=== PATIENT | female | born 1950 | race Caucasian/White ===

== ENCOUNTER → 2019-01-01 | Outpatient (CLI) | payer MEDICARE ==
[2019-01-05 14:07] LABS: CHLAMYDIA TRACHOMATIS, NAA Negative (Negative); HPV 16 Negative (Negative); HPV 18 Negative (Negative); HPV OTHER HR TYPES Negative (Negative); NEISSERIA GONORRHOEAE, NAA Negative (Negative)
== END | disposition home or self-care (01) ==
LOC: LAB SHORT 11:28 → LAB 11:28
PROVIDERS: Student in an Organized Health Care Education/Training Program
DX: Z12.4 Encounter for screening for malignant neoplasm of cervix (principal); Z11.3 Encounter for screening for infections with a predominantly sexual mode of transmission
CPT/HCPCS: 87491; 87591; 87624; G0123

== ENCOUNTER 2023-01-16 08:20 | Day surgery (SDC) | payer MEDICARE ==
[~2023-01-16] VITALS: Ht 166 cm; Wt 93.5 kg
[2023-01-16] VITALS (19 sets, daily range): BP systolic 122–176; BP diastolic 60–103
[~2023-01-16 08:20] MED LIST: ACYC800 PO; ENOX100I; PRAV20 PO; WARF10 PO
--- NOTE | 2023-01-16 09:47 | NUR ---
History, Chart, Medications and Allergies reviewed before start of procedure. Ambulatory in Day Surgery. Pre-Op teaching done. Pt verbalizes understanding. Patient confirms NPO status and agrees with scheduled surgery. Patient reports completing Chlorhexadine shower X2 prior to admission to hospital. Surgical site prepped with 2% Chlorhexidine cloth wipe. Lungs clear T/O to Auscultation. Patient States Post-Procedure ride home has been arranged. DIFFICULT IV START; MULTIPLE RNS ATTEMPTED, PT CALM & COOPERATIVE THROUGHOUT, REQUESTING FOR CONTINUED ATTEMPTS.
--- NOTE | 2023-01-16 19:22 | NUR ---
SHIFT SUMMARY POD0 R TKA, A/OX4, VSS, TOLERATING PO, PAIN WELL MANAGED, VOIDING INDEPENDENTLY, UP TO CHAIR FOR DINNER. PT HAS QUESTIONS REGARDING BRIDGING BACK TO HER COUMADIN AND LAB DRAWS WHICH WILL BE DISCUSSED WITH IN THE AM. NO ACUTE EVENTS THIS SHIFT, CALL LIGHT IN REACH.
[2023-01-17 00:16] VITALS: BP 129/68
[2023-01-17 03:08] VITALS: BP 132/58
[2023-01-17 05:30] LABS: BASOPHILS ABSOLUTE AUTO 0.01 K/mm3 (0.00-0.23); BASOPHILS PERCENT AUTO 0 % (0-2); EOSINOPHILS PERCENT AUTO 0 % (0-6); Hematocrit 36.6 % (33.0-51.0); Hemoglobin 11.9 g/dL (11.5-16.0); IMMATURE GRAN ABSOLUTE AUTO 0.04 K/mm3 (0.00-0.10); IMMATURE GRAN PERCENT AUTO 0 % (0-1); LYMPHOCYTES ABSOLUTE AUTO 0.72 K/mm3 (0.84-5.20); LYMPHOCYTES PERCENT AUTO 7 % (21-46); MONOCYTES ABSOLUTE AUTO 0.76 K/mm3 (0.16-1.47); MONOCYTES PERCENT AUTO 8 % (4-13); Mean Corpuscular HGB 28.9 pg (26.0-34.0); Mean Corpuscular HGB Conc 32.5 g/dL (31.5-36.5); Mean Corpuscular Volume 89 fL (80-100); Mean Platelet Volume 10.6 fL (9.1-12.4); NEUTROPHILS ABSOLUTE AUTO 8.15 K/mm3 (1.96-9.15); NEUTROPHILS PERCENT AUTO 84 % (41-73); Platelet Count 186 K/mm3 (150-400); RDW Coefficient Variation 12.7 % (11.7-14.2); RDW Standard Deviation 41.1 fL (35.1-46.3); Red Blood Cell Count 4.12 M/mm3 (3.80-5.20); White Blood Cell Count 9.68 K/mm3 (4.00-11.30)
[2023-01-17 05:46] LABS: International Normalized Ratio 0.98; Prothrombin Time Results 10.3 Sec (9.7-11.5)
--- NOTE | 2023-01-17 06:26 | NUR ---
SHIFT SUMMARY PT IS POD#1 FOR A RIGHT TOTAL KNEE REPLACEMENT. PT HAS BEEN UP TO THE BATHROOM AND HAS WALKED IN THE HALLWAY THIS SHIFT AND HAS BEEN STEADY. PT'S PAIN MEDICATED PER EMAR. VITAL SIGNS HAVE BEEN STABLE AND NO ACUTE EVENTS OCCURRED THIS SHIFT. BED IS IN LOWEST POSITION, CALL LIGHT IS WITHIN REACH.
[2023-01-17 06:29] LABS: Bun/Creatinine Ratio 30.1 (12.0-20.0); Calcium, Blood 8.5 mg/dL (8.5-10.1); Creatinine, Blood 0.7 mg/dL (0.40-1.00); Potassium, Blood 4.8 mmol/L (3.5-5.5)
[2023-01-17 07:33] VITALS: BP 106/61
[2023-01-17] MEDS ORDERED: ENOX40I SC (07:45)
--- NOTE | 2023-01-17 14:18 | NUR ---
DISCHARGE SUMMARY POD1 R TKA, A/O X4, VSS, TOLERATING PO, PAIN WELL MANAGED, AMBULATING WELL, VOIDING INDEPENDENTLY, DRESSING CHANGED THIS AM BY SURGEON, AQUACELL PLACED WITH RITESH WRAP OVER IT, DRESSING CHANGE INFORMATION PROVIDED AT TIME OF DRESSING CHANGE, IV REMOVED PRIOR TO DISCHARGE. DISUSSED DISCHARGE INFORMATION WITH HER AND HER INCLUDING HOME CARE, DRESSING CHANGE INSTRUCTIONS, AND FOLLOW UP APPOINTMENTS. ALL QUSTIONS ANSWERED INCLUDING BRIDGING BACK TO HER WARFARIN AND LAB DRAWS FOR HER INR PER MD DISCUSSION THIS MORNING. NO OTHER QUESTIONS AT THIS TIME. PT ESCORTED OUT TO PRIVATE AUTO TO GO HOME.
== END 2023-01-17 12:05 | disposition home or self-care (01) ==
LOC: ORSCMMR 08:20 → ORD 10:45 → ORSCMMR 10:45 → SURS 13:41 → ORSCMMR 01-17 12:05
PROVIDERS: Orthopaedic Surgery
PROC: 0SRC0J9 Replacement of Right Knee Joint with Synthetic Substitute, Cemented, Open Approach (ICD-10-PCS; principal; 2023-01-16 10:45)
DX: M17.0 Bilateral primary osteoarthritis of knee (principal); D68.51 Activated protein C resistance; Z86.718 Personal history of other venous thrombosis and embolism; Z79.01 Long term (current) use of anticoagulants; E78.00 Pure hypercholesterolemia, unspecified; Z79.899 Other long term (current) drug therapy; Z68.34 Body mass index [BMI] 34.0-34.9, adult
CPT/HCPCS: 36415; 73560-RT; 80048; 83735; 85025; 85610; 97110; 97116; 97162; A9270; C1713; C1776; J0171; J0690; J0735; J1100; J1170; J1650; J1885; J2405; J2704; J2795; J3010; J7050; J7120

== ENCOUNTER 2023-12-04 06:26 | Day surgery (SDC) | payer MEDICARE ==
[~2023-12-04] VITALS: Ht 165.1 cm; Wt 97.1 kg
[2023-12-04] VITALS (14 sets, daily range): BP systolic 131–180; BP diastolic 56–93
[~2023-12-04 06:26] MED LIST changes: +Acetaminophen 500 MG Tab PO SCH; +CeFAZolin Sodium 2,000 MG in NS 100 ML IV SCH; +Chlorhexidine Mouth Care 15 ML UDC MT SCH; +ENOX40I SC; +Lactated Ringer's 1,000 ML IV SCH; +OxyCODONE HCL 10 MG TABCR PO SCH; +Ropivacaine 0.5% HCl/Pf 123.125 MG,EPINEPHrine HCL 0.25 MG,Ketorolac Tromethamine 15 MG... INFIL SCH; +Tranexamic Acid 100 ML IV SCH; +Vancomycin HCL 1,000 MG in NS 250 ML IV SCH
--- NOTE | 2023-12-04 06:55 | NUR ---
History, Chart, Medications and Allergies reviewed before start of procedure. Lungs clear T/O to Auscultation. Patient confirms NPO status and agrees with scheduled surgery. Patient reports completing Chlorhexadine shower X2 prior to admission to hospital. Pre-Op teaching done. Pt verbalizes understanding.
[2023-12-04] MEDS ORDERED: DiphenhydrAMINE HCL 25 MG Cap PO PRN (07:05)
[2023-12-04] MEDS ORDERED: OxyCODONE HCL 5 MG TAB PO PRN ×2 (07:10→07:15)
[2023-12-04] MEDS ORDERED: Bisacodyl 10 MG Supp PR PRN (07:10)
[2023-12-04] MEDS ORDERED: Promethazine HCl 25 MG Tab PO PRN (07:10)
[2023-12-04] MEDS ORDERED: HYDROmorphone HCl/Pf 1MG SYR IV PRN ×2 (07:15→09:30)
[2023-12-04] MEDS ORDERED: Ondansetron HCl 2 MG / ML 2ML Vial IV PRN (07:15)
[2023-12-04] MEDS ORDERED: Lactated Ringer's 1,000 ML IV SCH (07:15)
[2023-12-04] MEDS ORDERED: Metoclopramide HCl 5MG / ML 2ML Vial IV PRN (07:15)
[2023-12-04] MEDS ORDERED: Magnesium Hydroxide Conc 10 ML UDC PO PRN (07:15)
[2023-12-04] MEDS ORDERED: FLU VACC TS2024-25(6MOS UP)/PF 45 MCG/0.5 ML SYRINGE IM SCH (07:20)
[2023-12-04] MEDS ORDERED: FentaNYL Citrate 50 MCG/ML 2 ML Injection ONE (07:49)
[2023-12-04] MEDS ORDERED: Midazolam HCl 1MG / ML 2ML Vial ONE (07:49)
[2023-12-04] MEDS ORDERED: Bupivacaine HCl 0.25% 30 ML Injection ONE (07:52)
[2023-12-04] MEDS ORDERED: propofoL 40 ML IV ONE (08:04)
[2023-12-04] MEDS ORDERED: Dexamethasone Sod Phos 10 MG/ML 1ML VIAL ONE (08:15)
[2023-12-04] MEDS ORDERED: Ondansetron HCl 2 MG / ML 2ML Vial ONE (08:15)
[2023-12-04] MEDS ORDERED: Ketorolac Tromethamine 30mg Vial ONE (08:15)
--- NOTE | 2023-12-04 08:40 | NUR ---
12/04/23 0840 Yolanda,Haley VANCO 1GM IV WAS STARTED IN PREOP. SPINAL BLOCK COMPLETED BY UPON ENTRY TO OR.
[2023-12-04] MEDS ORDERED: FentaNYL Citrate 50 MCG/ML 2 ML Injection IV PRN (09:25)
[2023-12-04] MEDS ORDERED: Droperidol 5 mg/2 ml Vial IV PRN (09:30)
[2023-12-04] MEDS ORDERED: Albuterol 2.5 MG/3 ML VIAL INH PRN (09:30)
--- NOTE | 2023-12-04 11:14 | NUR ---
PT ARRIVED TO ROOM VIA HOSPITAL BED. DROWSY BUT AROUSABLE TO VOICE. INCISION SITE COVERED WITH RITESH BANDAGE C/D/I. COLD PACK IN PLACE. PPP. VSS. WIGGLES TOES AND REPORTS FEELING TOUCH TO FEET. SNACKS AND WATER AT BEDSIDE. BED IN LOWEST POSITION, CALL LIGHT WITHIN REACH.
[2023-12-04] MEDS ORDERED: Ketorolac Tromethamine 15mg Vial IV SCH (12:00)
[2023-12-04] MEDS ORDERED: CeFAZolin Sodium 2,000 MG in NS 100 ML IV SCH (16:00)
[2023-12-04] MEDS ORDERED: Acetaminophen 500 MG Tab PO SCH (16:00)
[2023-12-04] MEDS ORDERED: Phenylephrine HCl 100 MCG/ML-NS 10MLSYR (1MG/10ML) IV ONE (16:29)
--- NOTE | 2023-12-04 17:13 | NUR ---
Shift Summary POD 0 LTKA. Incision site covered with obey bandage, C/D/I. Cold pack in place. PPP. Wiggles toes. Denies no n/t. VSS. Worked with PT this afternoon. Eating/drinking/voiding. denies n/v. Pain managed per emar.
[2023-12-04] MEDS ORDERED: Warfarin Sodium 5 MG Tab PO SCH (18:00)
[2023-12-04] MEDS ORDERED: Vancomycin HCL 1,000 MG in NS 250 ML IV SCH (19:00)
[2023-12-04] MEDS ORDERED: Docusate Sodium 100 MG Cap PO SCH (21:00)
[2023-12-05 00:34] VITALS: BP 148/57
[2023-12-05 04:36] VITALS: BP 131/68
[2023-12-05 05:03] LABS: BASOPHILS ABSOLUTE AUTO 0.01 K/mm3 (0.00-0.23); BASOPHILS PERCENT AUTO 0 % (0-2); EOSINOPHILS ABSOLUTE AUTO 0.01 K/mm3 (0.00-0.68); EOSINOPHILS PERCENT AUTO 0 % (0-6); Hematocrit 35.3 % (33.0-51.0); Hemoglobin 11.6 g/dL (11.5-16.0); IMMATURE GRAN ABSOLUTE AUTO 0.05 K/mm3 (0.00-0.10); IMMATURE GRAN PERCENT AUTO 1 % (0-1); LYMPHOCYTES ABSOLUTE AUTO 0.92 K/mm3 (0.84-5.20); LYMPHOCYTES PERCENT AUTO 9 % (21-46); MONOCYTES ABSOLUTE AUTO 0.67 K/mm3 (0.16-1.47); MONOCYTES PERCENT AUTO 7 % (4-13); Mean Corpuscular HGB 29.5 pg (26.0-34.0); Mean Corpuscular HGB Conc 32.9 g/dL (31.5-36.5); Mean Corpuscular Volume 90 fL (80-100); Mean Platelet Volume 10.4 fL (9.1-12.4); NEUTROPHILS PERCENT AUTO 83 % (41-73); Platelet Count 164 K/mm3 (150-400); RDW Coefficient Variation 12.7 % (11.7-14.2); RDW Standard Deviation 42.1 fL (35.1-46.3); Red Blood Cell Count 3.93 M/mm3 (3.80-5.20); White Blood Cell Count 9.96 K/mm3 (4.00-11.30)
[2023-12-05 05:35] LABS: Bun/Creatinine Ratio 28.5 (12.0-20.0); Calcium, Blood 8.9 mg/dL (8.5-10.1); Creatinine, Blood 0.67 mg/dL (0.40-1.00); Magnesium, Blood 1.9 mg/dL (1.6-2.4); Potassium, Blood 4.6 mmol/L (3.5-5.5)
--- NOTE | 2023-12-05 05:44 | NUR ---
SHIFT SUMMARY NOC. PT POD 1 FOR LEFT TOTAL KNEE. GAUZE AND RITESH WRAP C/D/I, POLAR PACK IN PLACE. PT TOLERATING PO AND VOIDING URINE. PT MEDICATED FOR PAIN WITH REPORTED RELIEF. PT LOST IV ACCESS THIS AM, AND DECLINED NEW IV. PT TO D/C HOME TODAY. BED IN LOWEST POSITION, CALL LIGHT IN REACH.
[2023-12-05 07:55] VITALS: BP 147/56
[2023-12-05] MEDS ORDERED: Enoxaparin 40 MG/0.4 ML SYR SC SCH (09:00)
[2023-12-05] MEDS ORDERED: Pravastatin Sodium 20 MG Tab PO SCH (09:00)
[2023-12-05] MEDS ORDERED: Trimethoprim/Sulfamethoxazole DS Tab PO SCH (09:00)
[2023-12-05] MEDS ORDERED: ENOX40I SC (09:01)
[2023-12-05] MEDS ORDERED: PROM25 PO (09:02)
[2023-12-05] MEDS ORDERED: OXAYDO5 M1 PO (09:02)
[2023-12-05] MEDS ORDERED: BACTRIM DS TAB1 EAC6 PO (09:03)
--- NOTE | 2023-12-05 10:11 | NUR ---
CALLED DR. CHEEMA'S OFFICE TO CONFIRM LAB CHECK FOR INR POST DISCHARGE. METROLOGY TECHNICIAN TO CALL BACK. EDUCATED PT ON CONFIRMING WITH DR. CHEEMA'S OFFICE ABOUT DATE/TIME FOR NEXT INR CHECK. PT VERBALIZED AN UNDERSTANDING.
--- NOTE | 2023-12-05 11:39 | NUR ---
DISCHARGE NOTE PT CLEARED BY PT TO DC TODAY. PT'S PAIN MANAGED W/ PO PAIN MEDS PER EMAR. TOLERATING REG DIET AND FLUIDS, VOIDING APPROPRIATELY. SBA TO BR W/ FWW AND GB. VSS. DRESSING C/D/I, CAP REFILL IN L TOES 2 SECS, PT ABLE TO MOVE ALL EXTREMITIES ON COMMAND. DC'D TO PRIVATE RIDE HOME VIA WC, BELONGINGS, AQUACEL DRESSINGS, AND DC INSTRUCTIONS SENT HOME W/ PT.
== END 2023-12-05 10:45 | disposition home or self-care (01) ==
LOC: ORSCMMR 06:26 → ORD 07:30 → ORSCMMR 07:30 → SURS 10:54 → ORSCMMR 14:15 → ORD 14:15 → ORSCMMR 12-05 10:45
PROVIDERS: Orthopaedic Surgery
PROC: 0SRD0J9 Replacement of Left Knee Joint with Synthetic Substitute, Cemented, Open Approach (ICD-10-PCS; principal; 2023-12-04 07:30)
DX: M17.12 Unilateral primary osteoarthritis, left knee (principal); D68.51 Activated protein C resistance; Z79.01 Long term (current) use of anticoagulants; Z79.899 Other long term (current) drug therapy; Z68.35 Body mass index [BMI] 35.0-35.9, adult
CPT/HCPCS: 36415; 73560-LT; 80048; 83735; 85025; 94760; 97110; 97112; 97116; 97161; 97530; A9270; C1713; C1776; J0171; J0690; J0735; J1100; J1650; J1885; J2250; J2371; J2405; J2704; J2795; J3010; J3370; J7050; J7120

== ENCOUNTER 2024-02-18 18:30 | Observation (INO) | payer MEDICARE ==
[~2024-02-18] VITALS: Ht 165.1 cm; Wt 97.5 kg
[~2024-02-18 18:30] MED LIST changes: -Acetaminophen 500 MG Tab PO SCH; +BACTRIM DS TAB1 EAC6 PO; -CeFAZolin Sodium 2,000 MG in NS 100 ML IV SCH; -Chlorhexidine Mouth Care 15 ML UDC MT SCH; +FentaNYL Citrate 50 MCG/ML 2 ML Injection IV PRN; -Lactated Ringer's 1,000 ML IV SCH; +OXAYDO5 M1 PO; -OxyCODONE HCL 10 MG TABCR PO SCH; +PROM25 PO; -Ropivacaine 0.5% HCl/Pf 123.125 MG,EPINEPHrine HCL 0.25 MG,Ketorolac Tromethamine 15 MG... INFIL SCH; -Tranexamic Acid 100 ML IV SCH; -Vancomycin HCL 1,000 MG in NS 250 ML IV SCH
[2024-02-18 18:57] LABS: BASOPHILS ABSOLUTE AUTO 0.02 K/mm3 (0.00-0.23); BASOPHILS PERCENT AUTO 0 % (0-2); EOSINOPHILS ABSOLUTE AUTO 0.14 K/mm3 (0.00-0.68); EOSINOPHILS PERCENT AUTO 2 % (0-6); Hematocrit 41.7 % (33.0-51.0); Hemoglobin 14.2 g/dL (11.5-16.0); IMMATURE GRAN ABSOLUTE AUTO 0.01 K/mm3 (0.00-0.10); IMMATURE GRAN PERCENT AUTO 0 % (0-1); LYMPHOCYTES ABSOLUTE AUTO 1.86 K/mm3 (0.84-5.20); LYMPHOCYTES PERCENT AUTO 29 % (21-46); MONOCYTES ABSOLUTE AUTO 0.35 K/mm3 (0.16-1.47); MONOCYTES PERCENT AUTO 5 % (4-13); Mean Corpuscular HGB 29.8 pg (26.0-34.0); Mean Corpuscular HGB Conc 34.1 g/dL (31.5-36.5); Mean Corpuscular Volume 88 fL (80-100); Mean Platelet Volume 10.5 fL (9.1-12.4); NEUTROPHILS ABSOLUTE AUTO 4.15 K/mm3 (1.96-9.15); NEUTROPHILS PERCENT AUTO 64 % (41-73); Platelet Count 194 K/mm3 (150-400); RDW Coefficient Variation 12.6 % (11.7-14.2); RDW Standard Deviation 40.5 fL (35.1-46.3); Red Blood Cell Count 4.76 M/mm3 (3.80-5.20); White Blood Cell Count 6.53 K/mm3 (4.00-11.30)
[2024-02-18 19:11] LABS: International Normalized Ratio 2.34; Prothrombin Time Results 23.5 Sec (9.7-11.5)
[2024-02-18 19:24] LABS: Albumin, Blood 3.7 g/dL (3.4-5.0); Albumin/Globulin Ratio 1.1 (0.8-1.8); Bilirubin, Total 0.3 mg/dL (0.1-1.0); Bun/Creatinine Ratio 33.5 (12.0-20.0); Calcium, Blood 9.2 mg/dL (8.5-10.1); Creatinine, Blood 0.63 mg/dL (0.40-1.00); Globulin, Blood 3.4 g/dL (2.2-4.0); Potassium, Blood 3.6 mmol/L (3.5-5.5); Total Protein, Blood 7.1 g/dL (6.4-8.2)
[2024-02-18] MEDS ORDERED: Ondansetron HCl 2 MG / ML 2ML Vial IV ONE (21:45)
[2024-02-18] MEDS ORDERED: Acetaminophen 325 MG TABLET PO ONE (21:45)
[2024-02-18] MEDS ORDERED: FentaNYL Citrate 50 MCG/ML 2 ML Injection IV STA (23:01)
[2024-02-18 23:39] VITALS: BP 179/81
[2024-02-19] MEDS ORDERED: HYDROmorphone HCl/Pf 1MG SYR IV PRN (01:30)
[2024-02-19 04:22] VITALS: BP 125/52
--- NOTE | 2024-02-19 04:30 | NUR ---
SHIFT SUMMARY: "PARISA" IS A&OX4. VSS, NO ACUTE EVENTS OVERNIGHT, BLOOD PRESSURE IMPROVED. SHE REPORTS THAT HER HEADACHE IS SIGNIFICANTLY IMPROVED AFTER MEDICATIONS PER MAR. SHE IS A STANDBY ASSIST TO THE BATHROOM, DENIES ANY DIFFICULTY WITH ELIMINATION. SHE CONTINUES TO REPORT DIFFICULTY FINDING WORDS AT TIMES AND SOME DIZZINESS/LIGHTHEADEDNESS. NO UNSTEADINESS ON AMBULATION WITNESSED, NO STRENGTH OR MOBILITY DEFICITS FOUND. IV TO RIGHT AC PATENT AND SHE IS TOLERATING PO INTAKE WELL. SHE IS LYING IN BED WITH THE CALL LIGHT IN REACH, BED IN LOWEST POSITION. WILL GIVE REPORT TO DAY SHIFT RN.
[2024-02-19 05:05] LABS: BASOPHILS ABSOLUTE AUTO 0.02 K/mm3 (0.00-0.23); BASOPHILS PERCENT AUTO 0 % (0-2); EOSINOPHILS ABSOLUTE AUTO 0.06 K/mm3 (0.00-0.68); EOSINOPHILS PERCENT AUTO 1 % (0-6); Hematocrit 36.2 % (33.0-51.0); Hemoglobin 12.1 g/dL (11.5-16.0); IMMATURE GRAN ABSOLUTE AUTO 0.02 K/mm3 (0.00-0.10); IMMATURE GRAN PERCENT AUTO 0 % (0-1); LYMPHOCYTES PERCENT AUTO 20 % (21-46); MONOCYTES PERCENT AUTO 7 % (4-13); Mean Corpuscular HGB 29.4 pg (26.0-34.0); Mean Corpuscular HGB Conc 33.4 g/dL (31.5-36.5); Mean Corpuscular Volume 88 fL (80-100); Mean Platelet Volume 10.3 fL (9.1-12.4); NEUTROPHILS ABSOLUTE AUTO 4.37 K/mm3 (1.96-9.15); NEUTROPHILS PERCENT AUTO 72 % (41-73); Platelet Count 175 K/mm3 (150-400); RDW Coefficient Variation 12.6 % (11.7-14.2); RDW Standard Deviation 40.6 fL (35.1-46.3); Red Blood Cell Count 4.12 M/mm3 (3.80-5.20); White Blood Cell Count 6.07 K/mm3 (4.00-11.30)
[2024-02-19 05:21] LABS: Bun/Creatinine Ratio 27.2 (12.0-20.0); Calcium, Blood 8.7 mg/dL (8.5-10.1); Creatinine, Blood 0.59 mg/dL (0.40-1.00); Potassium, Blood 4.1 mmol/L (3.5-5.5)
[2024-02-19 07:32] VITALS: BP 138/54
[2024-02-19] MEDS ORDERED: Aspirin 81 MG Chew PO SCH (09:00)
--- NOTE | 2024-02-19 11:52 | NUR ---
Upon receiving a referral for spiritual care, I visited the patient. She tells me that the [employer] blood tester had given her communion. She then begins to unfold the events that led to her admission to the hospital and that more tests are still being run. She talks about her family, her joaquina journey from [employer]oroastrian to [employer]ism and about her rosibel she gains from her joaquina. I provided therapeutic listening and prayer. Patient responded well and showed signs of an elevated mood.
--- NOTE | 2024-02-19 16:54 | NUR ---
DISCHARGE PT DC'D AT ABOUT 1650, THIS RN REMOVED IV WITHOUT REDNESS, EDUCATION PROVIDED. TELE DC'D AND REMOVED BY THIS RN. DISCHARGE PAPERWORK WAS OVERVIEWED WITH PT BY THIS RN AND EDUCATION PROVIDED. THIS RN ASKED PT IF SHE WOULD LIKE TO BE WHEELED DOWN TO PT ENTRANCE TWICE, PT REFUSED TWICE AND INSISTED TO WALK DOWN. RN CONFIRMED THAT IF SYMPTOMS OCCUR AGAIN, TO RETURN TO ER. PT AND FAMILY MEMBER CARRIED BELONGINGS IN HAND OUT OF UNIT.
== END 2024-02-19 16:53 | disposition home or self-care (01) ==
LOC: ER 18:30 → MEDS 18:31 → ER 22:27 → MEDS 22:27 → ERHOLD 22:27 → MEDS 22:27 → ERHOLD 23:35 → MEDS 02-19 14:59
PROVIDERS: Student in an Organized Health Care Education/Training Program; ADMIT Internal Medicine
DX: G43.109 Migraine with aura, not intractable, without status migrainosus (principal); D68.51 Activated protein C resistance; Z91.048 Other nonmedicinal substance allergy status
CPT/HCPCS: 36415; 70450; 70496; 70498; 70551; 80048; 80053; 82947; 85025; 85610; 93005; 93010; 96374-59; 99285-25; A9270; G0378; J1171; J2405; J3010; Q9967